=== PATIENT | female | born 1985 | race Caucasian/White ===

== ENCOUNTER 2018-12-07 15:17 | Emergency (ER) | payer OTHER, SELFPAY ==
[2018-12-07 15:25] VITALS: BP 125/84; PULSE 87; RESP 15; TEMP 36.8; O2SAT 100; BMI 25.0
--- NOTE | 2018-12-07 16:45 | PC.NURSE ---
hx of gastric bypass 2 years ago, 90 pounds wt lost since. had u/s done at [facility] . s/p endoscopy 5 days ago, schedule for HIDA scan on 12/27/09. pt here due to increase in pain, vomiting after meal. denies fever, +bm yesterday. treating with tylenol at home.
--- NOTE | 2018-12-07 17:05 | ED_ITS ---
HPI - Abdominal Pain General Chief Complaint: Abdominal Pain Stated Complaint: States galbladder issue Time Seen by Provider: 12/07/18 15:47 Source: patient Mode of arrival: ambulatory Limitations: no limitations History of Present Illness HPI narrative: Patient comes the emergency department for nausea and inability to hold down fluids. Patient has had long-standing issues since having a gastric bypass performed, and follows with GI. However, over the last couple of weeks, she has developed a pain in her right upper quadrant and lateral chest that feels like a squeezing sensation. She has had a recent endoscopy, which was unremarkable. She also had an ultrasound of her gallbladder which showed no stones in the gallbladder or duct. She is now scheduled for a HIDA scan later this month to further evaluate the pain on the right side. Patient states she has been vomiting solids, but has been able to keep down liquids. However, since this morning, she has not been able to hold down even water. Patient states that she has oral dissolving Zofran, Zofran tablets, and Phenergan at home, but she has only been taking Zofran tablets, because she does not like the taste of the oral dissolving form. She has not tried taking her Phenergan. No fevers. No chest pain or shortness of breath. No diarrhea. No blood in her vomit. Related Data Previous Rx's Medication Instructions Recorded prochlorperazine [Compazine] 25 mg WA Q12H PRN #12 each 12/07/18 Allergies Allergy/AdvReac Type Severity Reaction Status Date / Time acetaminophen [From Vicodin] Allergy Verified 12/07/18 15:32 aspirin Allergy Verified 12/07/18 15:32 hydrocodone [From Vicodin] Allergy Verified 12/07/18 15:32 NSAIDS (Non-Steroidal Allergy Verified 12/07/18 15:32 Anti-Inflamma Penicillins Allergy Verified 12/07/18 15:32 Sulfa (Sulfonamide Allergy Verified 12/07/18 15:32 Antibiotics) Review of Systems Constitutional Denies chills, Denies fever(s), Denies lethargy and Denies weakness Eyes Denies change in vision, Denies eye discharge, Denies irritation and Denies loss of vision ENT Ears, Nose, Mouth, and Throat: Denies change in voice, Denies neck pain and Denies sore throat Cardiovascular Denies chest pain, Denies irregular heart rhythm, Denies lightheadedness, Denies palpitations, Denies dyspnea, Denies dyspnea on exertion and Denies orthopnea Respiratory Denies cough, Denies dyspnea, Denies dyspnea on exertion and Denies wheezing Gastrointestinal Gastrointestinal: Reports abdominal pain, Denies change in bowel habits, Denies diarrhea, Reports nausea and Reports vomiting Genitourinary Denies hematuria, Denies flank pain, Denies urinary incontinence and Denies urinary urgency Musculoskeletal Denies neck pain Integumentary/Breasts Denies pruritus, Denies erythema, Denies rash and Denies wounds Neurologic Denies confusion, Denies loss of vision and Denies weakness Psychiatric Denies anxiety, Denies confusion, Denies depression, Denies homicidal ideation and Denies suicidal ideation Endocrine Denies palpitations Hematologic/Lymphatic Denies easy bruising Allergic/Immunologic Denies wheezing [facility] Medical History Vomiting (bilious) following gastrointestinal surgery (Acute) Surgical History Gastric bypass status for obesity (Acute) Social History Smoking Status: Unknown if ever smoked Social History Smoking Status: Unknown if ever smoked Exam Initial Vital Signs Initial Vital Signs: Vital Signs Temperature 98.2 F 12/07/18 15:25 Pulse Rate 87 12/07/18 15:25 Respiratory Rate 15 12/07/18 15:25 Blood Pressure 125/84 12/07/18 15:25 Pulse Oximetry 100 12/07/18 15:25 Const General: cooperative and well developed Nutritional Appearance: well nourished Orientation: alert, awake, oriented x3 and not confused [facility] Head: normocephalic and atraumatic Ears: external ears normal Nose: external nose normal and No nasal discharge Face and sinus: face symmetric and No dry mucous membranes Mouth: oral mucosae normal and moist mucous membranes Teeth and gingiva: dentition normal Eyes General: appearance normal, both eyes and all related structures Eyelids: eyelids normal Conjunctivae: conjunctivae normal Sclera: sclerae normal Pupils: PERRL EOM: EOM intact bilaterally Neck Neck: normal visual inspection, trachea midline, No lymphadenopathy, No midline deformity and No JVD Lymphatic: No lymphedema Chest Chest: normal inspection of the chest Resp Effort & Inspection: normal respiratory effort, able to speak in complete senten ezekiel, no respiratory distress and no use of accessory muscles Auscultation: clear to auscultation bilaterally, no rales, no rhonchi and no wheezes Cardio Rate: regular rate Rhythm: regular rhythm Heart Sounds: no click, no gallops, no murmurs and no rubs Pulses: normal peripheral pulses GI Inspection: non-distended Palpation: soft, no hepatosplenomegaly, No guarding, No pulsatile mass and tender (Epigastric, moderate no rebound) Auscultation: normal bowel sounds Back/Spine/Pelvis Back: No CVA tenderness Cervical Spine: cervical ROM normal and No pain with cervical ROM Thoracic/Lumbar Spine: thoracic and lumbar spine normal to inspection Skin General: no rashes or lesions noted, No jaundice and No petechiae Neuro General: alert, oriented x3, gait normal and no focal motor deficits Speech: speech normal Extrem General: full ROM, no clubbing, cyanosis or edema, no pedal edema and no calf tenderness Psych Appearance: well kempt Mental Status: mental status grossly normal Attitude: cooperative Thought Content: normal and suicidality Judgment: judgment good Course Course Narrative: Patient was worked up with laboratory studies and treated symptomatically with IV fluids, Dilaudid and Zofran. Patient's labs were completely normal. She had already had extensive workup for her symptoms and history, and was scheduled for the definitive test that she needs, which is a HIDA scan, in the near future. As such, I did not feel further imaging in the emergency department would be of any value. Patient was found to be feeling muc h better after symptomatic intervention. She was tolerating ice chips with no difficulty. We discussed the importance of having options for nausea control at home that do not involve swallowing a pill in her nauseated stomach. I have prescribed her oral dissolving Zofran, as well as Compazine suppositories. Patient is advised to follow up with her primary care physician and her specialist, as she is already scheduled to do. We have discussed the usual indications for return. Patient has somebody to drive her home. Orders Ordered: Discontinued Medications Hydromorphone HCl (Dilaudid) 1 mg IV NOW ONE Stop: 12/07/18 17:50 Last Admin: 12/07/18 18:13 Dose: 1 mg Sodium Chloride (Normal Saline 0.9%) 1,000 mls @ 1,000 mls/hr IV BOLUS ONE Stop: 12/07/18 18:04 Last Infusion: 12/07/18 18:32 Dose: 0 mls/hr Admin: 12/07/18 17:26 Dose: 1,000 mls/hr Ondansetron HCl (Zofran) 4 mg IV NOW ONE Stop: 12/07/18 17:06 Last Admin: 12/07/18 17:26 Dose: 4 mg Vital Signs - 8 hr 12/07/18 15:25 Temperature 98.2 F Pulse Rate 87 Respiratory Rate 15 Blood Pressure 125/84 Pulse Oximetry 100 MDM - Abdominal Pain Medical Records Attestation: I reviewed the patient's medical records. Lab Data Attestation: I reviewed the patient's lab results. Result diagrams: 12/07/18 16:50 12/07/18 16:50 Lab Results 12/07/18 12/07/18 12/07/18 Range/Units 16:50 16:50 16:50 WBC 5.8 (4.5-11.0) X10^3/uL RBC 4.35 (4.0-5.2) X10^6/uL Hgb 12.8 (12.0-16.0) g/dL Hct 37.6 (36-46) % MCV 86.4 (80-100) fL MCH 29.4 (26-34) PG MCHC 34.1 (30-36) % RDW 12.2 (11.6-14.8) % Plt Count 247 (150-400) X10^3/uL Neut % (Auto) 52.3 (50-75) % Lymph % (Auto) 39.7 (25-40) % Dawson % (Auto) 4.6 (3-14) % Eos % (Auto) 2.8 (2-4) % Baso % (Auto) 0.6 (0-2) % Neut # (Auto) 3000 (0189-7775) /uL Lymph # (Auto) 2300 (8196-5449) /uL Dawson # (Auto) 300 (0-900) /uL Eos # (Auto) 200 (0-450) /uL Baso # (Auto) 0 (0-100) /uL PT 11.2 (10.1-12.7) SECONDS INR 1.0 (0.9-1.3) APTT 33 (26.4-36.2) SECONDS Sodium 140 (137-145) mmol/L Potassium 3.8 (3.4-5.1) mmol/L Chloride 103 (98-107) mmol/L Carbon Dioxide 29 (22-32) mmol/L BUN 12 (7-17) mg/dL Creatinine 0.70 (0.52-1.04) mg/dL Estimated GFR > 60.0 (>60) mL/min BUN/Creatinine Ratio 17.1 (6-22) Glucose 83 (70-100) mg/dL Calcium 9.8 (8.4-10.2) mg/dL Total Bilirubin 0.3 (0.2-1.3) mg/dL AST 30 (14-36) IU/L ALT 20 (9-52) IU/L Alkaline Phosphatase 43 (38-126) U/L Total Protein 7.3 (6.3-8.2) g/dL Albumin 4.7 (3.5-5.0) g/dL Globulin 2.6 (1.7-4.1) g/dL Albumin/Globulin Ratio 1.8 (1.0-2.8) Lipase 137 (23-300) U/L Discharge Plan Departure Patient Disposition: Home Clinical Impression: Vomiting (bilious) following gastrointestinal surgery Abdominal pain Qualifiers: Abdominal location: right upper quadrant Qualified Code(s): R10.11 - Right upper quadrant pain Discharge Date/Time: 12/07/18 19:15 Interventions: ED Discharge Assessment Last Done: 12/07/18 19:14 Instructions: DI for Abdominal Pain-Adult Activity Restrictions/Additional Instructions: Your labs look fantastic, and are completely normal. It is not clear what is causing your right upper abdominal pain, but the HIDA scan is likely to be helpful in sorting things out. Please consider taking your oral dissolving Zofran, despite the unpleasant flavor, as this is the most likely to be able to treat your nausea adequately and allow you to keep fluids down. You may also take the rectal suppository for nausea, as prescribed. Please follow-up with your primary doctor and GI specialist for further concerns. Prescriptions: New prochlorperazine [Compazine] 25 mg suppository 25 mg WA Q12H PRN (Reason: nausea and vomiting) Qty: 12 RF: 0
[2018-12-07 17:17] VITALS: BP 128/76; PULSE 77; RESP 18; TEMP 37.1; O2SAT 98
[2018-12-07 17:18] LABS: Add Manual Diff / Slide Review NO; Basophils Absolute Auto 0 /uL (0-100); Basophils Percent Auto 0.6 % (0-2); Eosinophils Absolute Auto 200 /uL (0-450); Eosinophils Percent Auto 2.8 % (2-4); Hematocrit 37.6 % (36-46); Hemoglobin 12.8 g/dL (12.0-16.0); Lymphocytes Absolute Auto 2300 /uL (1100-4500); Lymphocytes Percent Auto 39.7 % (25-40); Mean Corpuscular HGB Conc 34.1 % (30-36); Mean Corpuscular Hemoglobin 29.4 PG (26-34); Mean Corpuscular Volume 86.4 fL (80-100); Monocytes Absolute Auto 300 /uL (0-900); Monocytes Percent Auto 4.6 % (3-14); Neutrophils Absolute Auto 3000 /uL (1500-7000); Neutrophils Percent Auto 52.3 % (50-75); Platelet Count 247 X10^3/uL (150-400); Red Blood Cell Count 4.35 X10^6/uL (4.0-5.2); Red Cell Distribution Width 12.2 % (11.6-14.8); White Blood Cell Count 5.8 X10^3/uL (4.5-11.0)
[2018-12-07 17:26] LABS: Prothrombin Time 11.2 SECONDS (10.1-12.7)
[2018-12-07] MEDS: SODIUM CHLORIDE 0.9% 1,000 ML 1000 ML IV (17:26)
[2018-12-07] MEDS: ONDANSETRON 4 MG/2 ML INJ IV (17:26)
[2018-12-07 17:28] LABS: PTT Partial Thromboplastin Tim 33 SECONDS (26.4-36.2)
[2018-12-07 17:29] LABS: Alanine Aminotransferase 20 IU/L (9-52); Albumin 4.7 g/dL (3.5-5.0); Albumin Globulin Ratio 1.8 (1.0-2.8); Alkaline Phosphatase 43 U/L (38-126); Aspartate Aminotransferase 30 IU/L (14-36); BUN Creatinine Ratio 17.1 (6-22); Bilirubin Total 0.3 mg/dL (0.2-1.3); Blood Urea Nitrogen 12 mg/dL (7-17); Calcium 9.8 mg/dL (8.4-10.2); Carbon Dioxide 29 mmol/L (22-32); Chloride 103 mmol/L (98-107); Estimated Glomerular Filt Rate > 60.0 mL/min (>60); Globulin 2.6 g/dL (1.7-4.1); Glucose 83 mg/dL (70-100); HEMOLYSIS < 15 (0-50); Lipase 137 U/L (23-300); Potassium 3.8 mmol/L (3.4-5.1); Sodium 140 mmol/L (137-145); Total Protein 7.3 g/dL (6.3-8.2)
[2018-12-07] MEDS: HYDROMORPHONE 1 MG INJ IV (18:13)
[2018-12-07 18:21] VITALS: BP 129/92; PULSE 80; RESP 15; O2SAT 96
[2018-12-07 19:07] VITALS: BP 129/84; PULSE 84; RESP 16; O2SAT 10
== END 2018-12-07 19:15 | disposition home or self-care (01) ==
PROVIDERS: Emergency Provider Emergency Medicine
DX: K91.0 Vomiting following gastrointestinal surgery (principal); R10.11 Right upper quadrant pain; Z98.84 Bariatric surgery status
CPT/HCPCS: 36591; 80053; 83690; 85025; 85610; 85730; 93005; 96361; 96374; 96375; 99283; 99284; J1170; J2405

== ENCOUNTER → 2019-06-08 13:57 | Outpatient (CLI) | payer OTHER, SELFPAY ==
--- NOTE | 2019-06-08 | DI.MG.S_ITS ---
BILATERAL DIGITAL DIAGNOSTIC MAMMOGRAM 3D/2D WITH AUGMENTATION: 06/08/2019 CLINICAL: Recurrent left breast mass. Comparison is made to exam dated: 04/06/2017 mammogram - [facility]. The tissue of both breasts is extremely dense, which lowers the sensitivity of mammography. No significant masses, calcifications, or other findings are seen in either breast. Specifically, no finding to correspond to the patient's left breast palpable, painful abnormality. Bilateral subpectoral silicone implants are intact. IMPRESSION: INCOMPLETE: NEEDS ADDITIONAL IMAGING EVALUATION There is no abnormality seen in the left breast to correspond with the palpable abnormality and pain at 2 o'clock, however, ultrasound is recommended. The patient is scheduled for that exam to be completed tomorrow morning. This exam was interpreted at Station ID: [id number]. NOTE: For mammograms, a report in lay terms will be sent to the patient. Approximately 15% of breast malignancies will not be visualized mammographically. In the management of a palpable breast mass, a negative mammogram must not discourage biopsy of a clinically suspicious lesion. Electronically Signed By: Nunu vasquez/:06/08/2019 16:15:09 letter sent: Need Ultrasound ACR BI-RADS Category 0: Incomplete [id number]
== END ==
PROVIDERS: Family Provider Contractor; PCP Family Medicine; Visit Provider Surgery
DX: R92.8 Other abnormal and inconclusive findings on diagnostic imaging of breast (principal); N63.12 Unspecified lump in the right breast, upper inner quadrant
CPT/HCPCS: 77066; G0279

== ENCOUNTER → 2019-06-09 07:45 | Outpatient (CLI) | payer OTHER, SELFPAY ==
--- NOTE | 2019-06-09 | DI.US.S_ITS ---
LIMITED ULTRASOUND OF LEFT BREAST: 06/09/2019 CLINICAL: Palpable left breast lump. Comparison is made to exams dated: 06/08/2019 mammogram - [facility], 04/13/2017 ultrasound biopsy, 04/06/2017 mammogram, and 04/06/2017 ultrasound - [facility]. Color flow and real-time ultrasound of the left breast 1-2 o'clock region were performed. Arriola scale images of the real-time examination were reviewed. There is an oval indistinct 2.5 x 1.3 x 0.4 cm hypoechoic mass in the superior lateral left breast at 1:00 position 7 cm from the nipple at the site of patient's reported focal palpable concern. This mass demonstrates no internal or adjacent vascularity on Doppler ultrasound. No other masses or abnormalities are identified by ultrasound in the superior lateral left breast at 1:00-2:00 positions. This mass demonstrates no internal biopsy clip and appears different from the mass identified on outside comparison ultrasound of 04/13/17 from [facility]. IMPRESSION: SUSPICIOUS OF MALIGNANCY There is an oval indistinct 2.5 x 1.3 x 0.4 cm hypoechoic avascular mass in the superior lateral left breast at 1:00 position 7 cm from the nipple at the site of patient's reported focal palpable concern. This may represent a fibroadenoma, and an ultrasound guided biopsy is recommended. However, the patient states that she is already being evaluated and treated by her surgeon who plans on removing the area of palpable concern. As such, an ultrasound guided biopsy is recommended if it would help plan/affect surgical and clinical management, or if surgical removal is not performed in the future. An ultrasound biopsy may not be necessary if the area is removed surgically and sent for pathological analysis. The patient is advised to monitor her breasts and to return for re-evaluation should she feel anything grow or change. This exam was interpreted at Station ID: [id number]. Electronically Signed By: Daniel Tirado M.D. ecl/:06/09/2019 08:43:31 letter sent: Biopsy Required Ultrasound BI-RADS: 4a Low suspicion for malignancy
== END ==
PROVIDERS: PCP Family Medicine; Visit Provider Surgery
DX: N63.21 Unspecified lump in the left breast, upper outer quadrant (principal)
CPT/HCPCS: 76642

== ENCOUNTER → 2019-07-10 07:43 | Outpatient (CLI) | payer OTHER, SELFPAY ==
--- NOTE | 2019-07-10 | DI.MG.S_ITS ---
UNILATERAL LEFT DIGITAL DIAGNOSTIC MAMMOGRAM POST-NEEDLE BIOPSY: 07/10/2019 CLINICAL: Left breast mass. Post clip. Comparison is made to exams dated: 06/09/2019 ultrasound, 06/08/2019 mammogram - [facility], and 04/13/2017 ultrasound biopsy - [facility]. The tissue of left breast is extremely dense, which lowers the sensitivity of mammography. There is a marker clip in the appropriate position in the left breast at 1 o'clock posterior depth. This marker clip placement is at the biopsy site. This correlates as palpated, with ultrasound findings, and the biopsy. IMPRESSION: POST PROCEDURE MAMMOGRAM FOR MARKER PLACEMENT There was a successful marker clip placement in the left breast posterior depth. This exam was interpreted at Station ID: [id number]. NOTE: For mammograms, a report in lay terms will be sent to the patient. Approximately 15% of breast malignancies will not be visualized mammographically. In the management of a palpable breast mass, a negative mammogram must not discourage biopsy of a clinically suspicious lesion. Electronically Signed By: Jake Odom M.D. at/:07/11/2019 10:28:56 ACR BI-RADS Category Post-procedure mammogram for marker placement
--- NOTE | 2019-07-10 | PATH_ITS ---
[facility] Accession Number: [id number] . 01 Material submitted: . breast - LEFT BREAST MASS 1:00 7CM FN . 01 Clinical history: . LEFT BREAST MASS . 01 Diagnosis: Left Breast Mass, 1 o'clock, 7 cm From Nipple, Biopsy: Fragments of fibroadenoma with myxoid change. Negative for malignancy. See comment. . COMMENT: Clinical and radiographic correlation is necessary. Deeper levels examined. MRV 07/11/2019 2248 Local . 01 Electronically signed: . Gosia Ragsdale MD, Pathologist NPI- [id number] . 01 Gross description: . Received in one formalin-filled container, labeled with the patient's name and designated left breast mass 1 o'clock 7 cm FN, are two 0.1 cm in diameter, cylindrical-shaped portions of tissue which range in length from 0.2 cm to 0.5 cm. The specimen is entirely submitted in one cassette. collection date per requisition: 07/10/19. No collection time per container; possible collection time: 9:13. Total fixation time: Approximately 12 hours. ([id number]) /Carl 07/11/20197 Local . 01 Pathologist provided ICD-10: D24.9 . 01 CPT . 805366 Performed at: 01 [facility] [address], [place], [place] [id number] MD Sidney Leavitt MD Phone: [phone]
--- NOTE | 2019-07-10 07:47 | DI.US.S_ITS ---
ULTRASOUND GUIDED BIOPSY LEFT BREAST WITH MARKING DEVICE INSERTED AND POST MAMMOGRAPHIC IMAGIN07/10/2019 CLINICAL: Left breast mass. PATIENT CONSENT: Risks (minor bleeding, infection, vasovagal reaction and repeat procedure), benefits and alternatives were explained to the patient and written informed consent was obtained. Correlation is made to exams dated: 07/10/2019 mammogram, 06/09/2019 ultrasound, and 06/08/2019 mammogram - [facility]. An ultrasound guided biopsy using real-time ultrasound was performed for the palpable 0.8 cm x 2.5 cm x 0.4 cm wider than tall indistinct oval mass located in the left breast at 1 o'clock posterior depth 7 cm from the nipple. The skin was prepped in the usual manner. Local anesthetic was administered to the access site. The abnormality was approached from the lateral aspect. A 20 gauge biopsy needle was placed adjacent to the abnormality through an introducer device under ultrasound guidance. Once the needle was documented to be in the correct location, eight specimens were obtained using the Templafy biopsy device. A clip was inserted into the biopsy cavity. Post procedure mammographic imaging demonstrates the location device at the targeted area. The specimens were sent to the laboratory for pathological analysis. IMPRESSION: ULTRASOUND GUIDED BIOPSY BENIGN Ultrasound guided biopsy of the 0.8 cm x 2.5 cm x 0.4 cm wider than tall mass in the left breast at 1 o'clock posterior depth 7 cm from the nipple was successful. Pathology indicates benign fibroadenoma (FA). Pathology results are concordant with imaging findings. Return to annual mammogram screening schedule is recommended. This exam was interpreted at Station ID: [id number]. bennett Simpson M.D., M.D./:07/12/2019 16:28:32
== END ==
PROVIDERS: PCP Family Medicine; Visit Provider Surgery
DX: D24.2 Benign neoplasm of left breast (principal)
CPT/HCPCS: 19083; 77065

== ENCOUNTER 2019-07-18 08:02 | Day surgery (SDC) | payer OTHER, SELFPAY ==
[2019-07-14 08:04] VITALS: BMI 24.6
[2019-07-18] VITALS (9 sets, daily range): BP systolic 112–124; BP diastolic 55–80; PULSE 69–100; RESP 9–20; TEMP 36.6–36.9; O2SAT 94–100; BMI 24.6
--- NOTE | 2019-07-18 | PATH_ITS ---
[facility] Accession Number: [id number] . 01 Material submitted: . breast - LEFT BREAST . 01 Clinical history: . LUMPECTOMY; SHORT SUTURE SUPERIOR, LONG SUTURE LATERAL . . 02 Diagnosis: Breast, Left, Partial Mastectomy (Weight 21 grams): Residual fibroadenoma with myxoid change, at least 12 mm in greatest dimension (involves slices 8, 9, and 10). Background of benign fibrocystic change. Florentino-shaped biopsy clip present in slice 9 by gross examination. Wire localization needle tip adjacent to residual fibroadenoma in slice 8 by gross examination. Changes consistent with previous instrumentation are present. Anterior margin is less than 1 mm in slices 8-10 of 14 (medial to lateral). All other inked margins are greater than 10 mm. [facility] 07/20/2019 1139 Local . 02 Electronically signed: . Leslie Castillo MD, Pathologist NPI- [id number] . 01 Gross description: . Received: In formalin, labeled L breast lumpectomy, SS superior, LS lateral. Specimen: Left partial mastectomy. Weight: 21 grams. Measurement: 1.7 cm anterior to posterior, 5.5 cm medial to lateral, and 4.1 cm superior to inferior. Skin ellipse: Absent. Wire: Present, penetrating at the central lateral aspect and terminating within the specimen. Margins: Oriented by surgeon with short superior suture, long lateral suture, and inked as follows: posterior=black; anterior=purple; superior=blue; inferior=green; medial=yellow; lateral=orange. Sliced: Medial to lateral into 14 slices. Lesions: No definitive lesions are identified. Other: The cut surfaces are densely fibrous with a biopsy site identified in slices 8 and 9. The localization wire ends within slice 8 and a metal florentino-shaped biopsy marker is identified in slice 9. Fixation time: The specimen was placed in formalin on 07/19/2019 with no time given. Approximate total fixation time is calculated to be 28 hours. Sections: A1: Slice 1, medial end of specimen, perpendicular. A2: Slice 2. A3: Slice 3. A4: Slice 4. A5: Slice 5. A6: Slice 6. A7-A8: Slice 7, bisected and submitted superior to inferior. A9: Slice 8, location of localization wire. A10-A11: Slice 9, bisected and submitted superior to inferior, location of biopsy marker. A12-A13: Slice 10, bisected and submitted superior to inferior. A14-A15: Slice 11, bisected and submitted superior to inferior. A16-A17: Slice 12, bisected and submitted superior to inferior. A18-A19: Slice 13, bisected and submitted superior to inferior. A20: Slice 14, lateral end of specimen, perpendicular. Specimen entirely submitted. Note: After serially sectioning, the specimen was reviewed by Dr. Hannah Spence. ([id number]) /MRV 07/19/[address] [place] [address] . 02 Pathologist provided ICD-10: D24.2 . 02 CPT . 307467 Performed at: 01 [facility] [address] [id number] MD Sidney Leavitt MD Phone: [phone] Performed at: 02 [facility] [address] [place] [id number] MD Leslie Spring MD Phone: [phone]
--- NOTE | 2019-07-18 | DI.US.S_ITS ---
ULTRASOUND GUIDED WIRE LOCALIZATION LEFT BREAST: 07/18/2019 CLINICAL: Pre-op wire localization with ultrasound guidance. Correlation is made to exams dated: 07/10/2019 ultrasound biopsy, 07/10/2019 mammogram, 06/09/2019 ultrasound, and 06/08/2019 mammogram - [facility]. A wire localization using ultrasound guidance was performed for the palpable mass located in the left breast at 1 o'clock. The skin was prepped in the usual manner. Local anesthetic was administered to the access site. The localization was approached from the lateral aspect. A wire was inserted into the targeted area under ultrasound guidance. Post placement imaging demonstrates the tip rests in the targeted area. IMPRESSION: WIRE LOCALIZATION Wire localization for the mass in the left breast was successful. This exam was interpreted at Station ID: [id number]. Ricky Jimenez M.D. fx/:07/18/2019 11:00:47
--- NOTE | 2019-07-18 | DI.MG.S_ITS ---
SPECIMEN: 07/18/2019 CLINICAL: Left breast mass. Correlation is made to exams dated: 07/18/2019 localization, 07/18/2019 mammogram, 07/10/2019 mammogram, and 06/08/2019 mammogram - [facility]. The targeted lesion, biopsy clip and guide wire are within the surgical specimen. IMPRESSION: SPECIMEN The targeted lesion, biopsy clip and guide wire are within the surgical specimen. This exam was interpreted at Station ID: [id number]. Ricky Jimenez M.D. fx/:07/19/2019 10:39:03
--- NOTE | 2019-07-18 | DI.MG.S_ITS ---
UNILATERAL LEFT DIGITAL DIAGNOSTIC MAMMOGRAM: 07/18/2019 CLINICAL: Left breast mass. Comparison is made to exams dated: 06/08/2019 mammogram - [facility] and 04/06/2017 mammogram - [facility]. The tissue of left breast is extremely dense, which lowers the sensitivity of mammography. The tip of the localization wire is next to the biopsy clip. IMPRESSION: The tip of the localization wire is in the area of the targeted lesion. This exam was interpreted at Station ID: [id number]. NOTE: For mammograms, a report in lay terms will be sent to the patient. Approximately 15% of breast malignancies will not be visualized mammographically. In the management of a palpable breast mass, a negative mammogram must not discourage biopsy of a clinically suspicious lesion. Electronically Signed By: Ricky Jimenez M.D. fx/:07/18/2019 11:06:08 ACR BI-RADS Category n/a
[2019-07-18] MEDS: LACTATED RINGERS 1,000 ML 100 ML IV (09:23)
--- NOTE | 2019-07-18 10:43 | PM.HP.1 ---
History of Present Illness History of Present Illness Date Patient Seen: 07/18/19 Time Patient Seen: 10:43 Chief complaint: [id number] Narrative: 07/18/19-Interval underwent a needle-guided core needle biopsy of left breast mass its demonstrates fibroadenoma. No other interval changes in health. She is here today for a needle-guided left lumpectomy. Please refer to the H& P from May 2019 for further detail. May 2019 This is a 33-year-old female who presents for evaluation of a painful left breast mass. She has a history of prior fibroadenoma for which she underwent a left lumpectomy several years ago at an outside facility. I have reviewed the pathology report and verified it as such. At a similar location to her prior excision she now has a painful lump in the breast for the past several months. She has had no imaging prior to this visit. She has no history of nipple discharge or retraction she no family history of breast cancer she is not on oral contraceptives and has never breast fed. Her medical history is significant for Lonny-en-Y gastric bypass breast augmentation. She has no coronary artery disease valvular disease stroke peripheral vascular disease diabetes pulmonary or renal insufficiency Patient History Medical History Fibroadenoma (Acute) Vomiting (bilious) following gastrointestinal surgery (Acute) Surgical History (Updated 07/14/19 @ 08:09 by Teresa Groev RN) Gastric bypass status for obesity (Acute) H/O breast augmentation (Acute) H/O lumpectomy (Acute) History of Lonny-en-Y gastric bypass (Acute) Family & Social History Social History: household members spouse Tobacco & Substance use: Smoking Status Unknown if ever smoked alcohol intake current alcohol intake frequency holiday/special occasion Substance Use Type does not use Meds Home Medications and Allergies Home Medications Medication Instructions Recorded Confirmed Type prochlorperazine [Compazine] 25 mg [place] Q12H PRN #12 each 12/07/18 07/18/19 Rx diazepam 5 mg tablet 5 mg PO BEDTIME PRN 05/10/19 07/18/19 History epinephrine 0.3 mg/0.3 mL 0.3 mg IM ONCE 05/10/19 07/18/19 History injection, auto-injector ipratropium-albuterol 18 mcg-103 2 spray INHALATION PRN PRN 05/10/19 07/18/19 History mcg/actuation aerosol inhaler magnesium oxide 400 mg PO DAILY 05/10/19 07/18/19 History metoprolol tartrate 50 mg tablet 50 mg PO DAILY 05/10/19 07/18/19 History montelukast 10 mg tablet 10 mg PO DAILY 05/10/19 07/18/19 History vitamin#30 30 mg iron-10 cap PO 05/10/19 05/10/19 History mg iron-folic acid 1 mg-omg3 capsule Symbicort 2 puff INHALATION DAILY 07/18/19 07/18/19 History acetaminophen [Tylenol] 650 mg PO QID PRN #60 cap 07/18/19 Rx ondansetron HCl [Zofran] 4 mg PO Q8H PRN #30 tab 07/18/19 Rx oxycodone 5 mg PO Q6H PRN #50 tab 07/18/19 Rx Allergies Allergy/AdvReac Type Severity Reaction Status Date / Time acetaminophen [From Vicodin] Allergy Dizziness Verified 07/18/19 08:26 hydrocodone [From Vicodin] Allergy Dizziness Verified 07/18/19 08:26 NSAIDS (Non-Steroidal Allergy Verified 07/18/19 08:26 Anti-Inflamma Penicillins Allergy Hives Verified 07/18/19 08:26 Sulfa (Sulfonamide Allergy Difficulty Verified 07/18/19 08:26 Antibiotics) Breathing Review of Systems Review of Systems ROS Unobtainable: All systems reviewed & are unremarkable except as noted in HPI and below Exam Vital Signs (past 8 hours): - 07/18/19 09:24 Temperature 98.1 F Pulse Rate 69 Respiratory Rate 15 Blood Pressure 124/77 Pulse Oximetry 100 Oxygen Delivery Method Room Air Narrative Exam Narrative: General-no acute distress, well nourished HEENT-moist mucous membranes, no scleral icterus Neck-supple, no lymphadenopathy Chest- non labored respirations, clear to auscultation bilaterally Cardiac-regular rate no peripheral edema Abdomen-soft, nontender, non distended Extremities-warm, well perfused Neurological-alert and oriented, no focal deficits Assessment & Plan Assessment & Plan narrative: 34-year-old female with a recurrent left breast mass core needle biopsy demonstrates a fibroadenoma. She is here today for a needle-guided left lumpectomy. It her questions have been answered and she is in agreement with this plan. Please refer to the H& P dated May 2019 for further details.
[2019-07-18] MEDS: CLINDAMYCIN 900 MG/50 ML PIGGYBACK 50 MG IV (10:50)
--- NOTE | 2019-07-18 11:20 | SUR.OPER ---
Supine on padded OR bed, head on pillow, arms secured on padded arm boards at <90 degrees abduction, legs uncrossed, safety belt at thigh, tape over blanket over lower legs.
[2019-07-18] MEDS: BUPIVACAINE 0.5% (PF) VIAL 30 ML INJ (11:24)
--- NOTE | 2019-07-18 12:12 | PM.OP.1 ---
Operative Date/Time/Diagnoses Date of procedure: 07/18/19 Time of procedure: 12:12 Pre-op diagnosis: fibroadenoma Post-op diagnosis: same Procedure & Clinicians Procedure: Needle-guided lumpectomy, left Same procedure as scheduled: Yes Indications: This is a 34-year-old female developed a symptomatic left breast mass. She had a previous left fibroadenoma that was excised an outside facility years ago and since he developed a recurrence. She underwent a core needle biopsy which demonstrated fibroadenoma and is here today for needle-guided lumpectomy. Surgeon: Van Jay Anesthesia Type: General Operative Notes Findings: The x-ray demonstrates clip and wire within the specimen. Specimen(s): other (Lumpectomy) Estimated Blood Loss (mL): 10 Procedure in detail: The patient underwent needle localized prior to the operation. They were brought to the operating room and placed supine on the table. Bilateral lower extremity compression devices were applied. They were intubated with an LMA. There were prepped and draped in sterile fashion. Time-out was performed to ensure the correct patient procedure necessary equipment within the operating room. A curvilinear incision on the lateral aspect of the right areola was made and subcutaneous tissues were divided. The localizing wire was identified and then brought back within the incision. The end of the wire was within left lateral mass appearance consistent with a fibroadenoma.. The mass was excised with the wire and clip. Specimen was marked short stitch superior long stitch lateral. Imaging demonstrated that the specimen contained the wire and the associated clip. Subcutaneous tissues were reapproximated with 3 0 Vicryl sutures skin closed with Monocryl followed by application of Dermabond and Steri-Strips. 0.25% bupivacaine was infiltrated into the skin. Complications: none Post-operative Condition: stable Disposition: same day surgery
[2019-07-18] MEDS: fentaNYL 100 MCG/2 ML INJ IV ×3 (12:14→12:41)
[2019-07-18] MEDS: KETOROLAC 30 MG/ML VIAL IV (12:51)
--- NOTE | 2019-07-18 12:55 | SUR.PHASEI ---
Dr. Jay notified patient c/o tingling in lt hand, no new orders per MD.
[2019-07-18] MEDS: ONDANSETRON 4 MG/2 ML INJ IV (13:18)
[2019-07-18] MEDS: OXYCODONE/ACETAMINOPHEN 5/325 TABLET 1 TAB PO (13:54)
--- NOTE | 2019-07-18 13:58 | SUR.PHASEII ---
Patient ambulated to bathroom without difficulty. Patient ate more crackers. Pain pill given. No nausea at this time. Home with family in stable condition.
== END 2019-07-18 14:04 | disposition home or self-care (01) ==
PROVIDERS: PCP Family Medicine; Visit Provider Surgery
PROC: (CPT 19301; principal; 2019-07-18 09:45)
DX: D24.2 Benign neoplasm of left breast (principal); J45.909 Unspecified asthma, uncomplicated; G43.909 Migraine, unspecified, not intractable, without status migrainosus
CPT/HCPCS: 19301; 19285; 76098; 77065; J1100; J1885; J2405; J2704; J3010

== ENCOUNTER → 2021-03-17 13:16 | Outpatient (CLI) | payer OTHER, SELFPAY ==
[2021-03-17 16:28] LABS: COVID19 -Nasal RAPID Negative (Negative)
== END ==
PROVIDERS: PCP Family Medicine; Visit Provider Surgery
DX: Z01.812 Encounter for preprocedural laboratory examination (principal); Z20.822 Contact with and (suspected) exposure to COVID-19
CPT/HCPCS: 87635; C9803

== ENCOUNTER 2021-03-18 06:32 | Day surgery (SDC) | payer OTHER, SELFPAY ==
[2021-03-14 08:52] VITALS: BMI 24.6
[2021-03-18] VITALS (9 sets, daily range): BP systolic 106–122; BP diastolic 52–83; PULSE 62–84; RESP 10–16; TEMP 36.5–36.9; O2SAT 98–100; BMI 24.6
--- NOTE | 2021-03-18 | PATH_ITS ---
[facility] Accession Number: [id number] No. of containers..01 Tissue . 01 Material submitted: . body - SOFT TISSUE MASS . 01 Diagnosis: Soft Tissue, Excision: Mature fibroadipose tissue, consistent with lipoma. V 03/20/2021 0902 Local . 01 Electronically signed: . Cam Watt MD, Dermatopathologist NPI- [id number] . 01 Gross description: . The specimen is received in formalin, labeled soft tissue mass and consists of three carvajal-yellow fragments of adipose tissue ranging from 2.5 x 2.2 x 2.0 cm to 4.0 x 3.0 x 2.0 cm and measuring 7.0 x 4.0 x 2.5 cm in aggregate. The fragments are inked blue and serially sectioned to reveal carvajal-yellow lobulated cut surfaces. P[employer] sections are submitted in cassettes A1-A7. ([id number]) /V 03/19/2021 0943 Local . 01 Pathologist provided ICD-10: D17.9 . 01 CPT . 348337 Specimen Comment: A duplicate report has been generated due to demographic updates. Performed at: 01 [facility] [address] [place] [address] [address], [place], [place] [id number] MD Sidney Leavitt MD Phone: [phone]
[2021-03-18] MEDS: LACTATED RINGERS 1,000 ML 100 ML IV (07:27)
--- NOTE | 2021-03-18 07:36 | PM.PREOP ---
Pre-operative Note Interval Note History & Physical reviewed/Exam performed by Physician: Yes Changes to H&P: No
[2021-03-18] MEDS: CLINDAMYCIN 900 MG/50 ML PIGGYBACK 50 MG IV (07:48)
--- NOTE | 2021-03-18 08:10 | SUR.OPER ---
Right Lateral on a hogan bag, head on pillow, gel axillary roll in place, bottom leg bent with gel pad under knee to foot, upper leg straight and supported with pillows. Upper arm supported by pillows and secured over bottom arm to padded arm board. Safety belt at hip, tape over blanket lower legs.
[2021-03-18] MEDS: BUPIVACAINE 0.25% (PF) VIAL 30 ML INJ (08:16)
--- NOTE | 2021-03-18 08:40 | PM.OP.1 ---
Operative Date/Time/Diagnoses Date of procedure: 03/18/21 Time of procedure: 08:40 Pre-op diagnosis: Soft tissue mass left flank Post-op diagnosis: same Procedure & Clinicians Procedure: Excision of 4 cm soft tissue mass from left flank Same procedure as scheduled: Yes Indications: Symptomatic superficial soft tissue mass left flank Surgeon: Van Jay Anesthesia Type: General Operative Notes Findings: Soft tissue mass consistent with lipoma Specimen(s): other (Soft tissue mass) Estimated Blood Loss (mL): 10 Procedure in detail: Patient was brought to the operating room placed supine on the table. Bilateral lower extremity compression devices were applied. Received clindamycin. Anesthesia was induced intubated with an LMA. Was positioned in the right lateral decubitus position with beanbag and appropriately padded including axillary roll. Time-out performed. Prepped draped sterile fashion. A time-out was performed. 1% lidocaine was infiltrated into the skin over the area of concern. The soft tissue mass was readily palpable. Incision over the soft tissue mass was made with a knife and the subcutaneous tissues were divided. The mass was encountered it was grasped and then it was dissected out circumferentially. The superficial soft tissue mass was approximately 4 cm in diameter and sub appearance was consistent with lipoma. Hemostasis was achieved. The subcutaneous tissue was closed with Vicryl suture and the skin closed Monocryl followed by Dermabond. Complications: none Post-operative Condition: stable Disposition: same day surgery
[2021-03-18] MEDS: fentaNYL 100 MCG/2 ML INJ IV ×2 (08:41→08:51)
--- NOTE | 2021-03-18 08:56 | SUR.PHASEI ---
Received to PACU after general anesthesia. Airway patent, self maintained. Report from Dr Pate and AIYANA Doyle.
[2021-03-18] MEDS: OXYCODONE/ACETAMINOPHEN 5/325 TABLET 1 TAB PO ×2 (08:57→09:31)
== END 2021-03-18 09:43 | disposition home or self-care (01) ==
PROVIDERS: PCP Family Medicine; Referring Provider Family Medicine; Visit Provider Surgery
PROC: (CPT 22903; principal; 2021-03-18 07:45)
DX: R19.04 Left lower quadrant abdominal swelling, mass and lump (principal); J45.909 Unspecified asthma, uncomplicated; Z86.16 Personal history of COVID-19
CPT/HCPCS: 22903; 81025; 82962; J2250; J2704; J3010